=== PATIENT | female | born 1960 | race Caucasian/White ===

== ENCOUNTER 2017-08-29 07:22 | Emergency (ER) | payer BC, OTHER ==
--- NOTE | 2017-08-29 07:39 | ER ---
Nurse's Notes [facility] Name: Lalitha Callejas Age: 56 yrs Sex: Female : 1960 Arrival Date: 08/29/2017 Time: 07:26 Bed 6 Private MD: None, None Diagnosis: Suppurative otitis media, unspecified, left ear Presentation: 08/29 07:28 Presenting complaint: Patient states: was seen by PCP Wednesday and prescribed Prednisone sv and claritin for sinus congestion, doesn't feel any better. c/o head pressure, left ear drum ringing, runny nose. Denies fever. Transition of care: patient was not received from another setting of care. Onset of symptoms was August 27, 2017. Risk Assessment: Do you want to hurt yourself or someone else? Patient reports no desire to harm self or others. Initial Sepsis Screen: Does the patient meet any 2 criteria? No. Patient's initial sepsis screen is negative. Does the patient have a suspected source of infection? No. Patient's initial sepsis screen is negative. Care prior to arrival: None. 07:28 Method Of Arrival: Ambulatory sv 07:28 Acuity: MOUNA 5 sv Historical: - Allergies: 07:35 NKDA; sv - Home Meds: 07:35 Claritin Oral [Active]; sv - PMHx: 07:35 None; sv - PSHx: 07:35 None; sv - Immunization history:: Adult Immunizations up to date. - Social history:: Smoking status: Patient/guardian denies using tobacco, Patient/guardian denies using alcohol, the patient reports quitting approximately 7 years ago. - Ebola Screening: : No symptoms or risks identified at this time. Screenin:35 Abuse screen: Denies threats or abuse. Denies injuries from another. Nutritional hb screening: No deficits noted. Tuberculosis screening: No symptoms or risk factors identified. Fall Risk None identified. Assessment: 07:40 General: Appears in no apparent distress. Behavior is calm, cooperative. Pain: Pain hb currently is 6 out of 10 on a pain scale. Neuro: Level of Consciousness is awake, alert, obeys commands, Oriented to person, place, time, situation. Cardiovascular: Capillary refill < 3 seconds Patient's skin is warm and dry. Respiratory: Airway is patent Trachea midline Respiratory effort is even, unlabored, Respiratory pattern is regular, symmetrical, Breath sounds are clear bilaterally. GI: No signs and/or symptoms were reported involving the gastrointestinal system. : No signs and/or symptoms were reported regarding the genitourinary system. EENT: Reports nasal congestion pain since ears. Derm: No signs and/or symptoms reported regarding the dermatologic system. Skin is intact, is healthy with good turgor, Skin is pink, warm \T\ dry. Musculoskeletal: No signs and/or symptoms reported regarding the musculoskeletal system. Vital Signs: 07:36 BP 138 / 84; Pulse 89; Resp 18; Temp 97.8(TE); Pulse Ox 98% on R/A; Weight 58.06 kg; sv Height 5 ft. 10 in. (177.80 cm); Pain 6/10; 07:36 Body Mass Index 18.37 (58.06 kg, 177.80 cm) sv ED Course: 07:26 Patient arrived in ED. sb2 07:26 None, None is Private Physician. sb2 07:28 Jake Neely MD is Attending Physician. gs 07:35 Triage completed. sv 07:36 Arm band placed on right wrist. sv 07:40 Patient has correct armband on for positive identification. Bed in low position. Call light in reach. Side rails up X 1. Administered Medications: No medications were administered Outcome: 07:37 Discharge ordered by . 07:58 Discharged to home ambulatory. hb 07:58 Condition: stable 07:58 Discharge instructions given to patient, Instructed on discharge instructions, follow up and referral plans. medication usage, Demonstrated understanding of instructions, follow-up care, medications, Prescriptions given X 1. 07:58 Patient left the ED. hb Signatures: Kendra Elmore, RN RN Luz Eng, RN RN Jake Neely MD MD Yamilet Childress sb2
--- NOTE | 2017-08-29 07:58 | EDPHYS ---
Physician Documentation [facility] Name: Lalitha Callejas Age: 56 yrs Sex: Female : 1960 Arrival Date: 08/29/2017 Time: 07:26 Bed 6 Private MD: None, None ED Physician Jake Neely HPI: 08/29 07:38 This 56 yrs old Female presents to ER via Ambulatory with complaints of Sinus gs Pain. 07:38 The patient or guardian reports congestion, l ear pain. Onset: The symptoms/episode gs began/occurred 3 day(s) ago, and became persistent. Severity of symptoms: At their worst the symptoms were moderate, in the emergency department the symptoms are unchanged. Associated signs and symptoms: Pertinent positives: earache, Pertinent negatives: chest pain, fever. The patient has experienced similar episodes in the past, a few times. The patient has been recently seen by a physician: the patient's primary care provider. Historical: - Allergies: 07:35 NKDA; sv - Home Meds: 07:35 Claritin Oral [Active]; sv - PMHx: 07:35 None; sv - PSHx: 07:35 None; sv - Immunization history:: Adult Immunizations up to date. - Social history:: Smoking status: Patient/guardian denies using tobacco, Patient/guardian denies using alcohol, the patient reports quitting approximately 7 years ago. - Ebola Screening: : No symptoms or risks identified at this time. ROS: 07:38 All other systems are negative. gs Exam: 07:38 Head/Face: Normocephalic, atraumatic. Eyes: Pupils equal round and reactive to light, gs extra-ocular motions intact. Lids and lashes normal. Conjunctiva and sclera are non-icteric and not injected. Cornea within normal limits. Periorbital areas with no swelling, redness, or edema. Neck: Trachea midline, no thyromegaly or masses palpated, and no cervical lymphadenopathy. Supple, full range of motion without nuchal rigidity, or vertebral point tenderness. No Meningismus. Chest/axilla: Normal chest wall appearance and motion. Nontender with no deformity. No lesions are appreciated. Cardiovascular: Regular rate and rhythm with a normal S1 and S2. No gallops, murmurs, or rubs. Normal PMI, no JVD. No pulse deficits. Respiratory: Lungs have equal breath sounds bilaterally, clear to auscultation and percussion. No rales, rhonchi or wheezes noted. No increased work of breathing, no retractions or nasal flaring. Abdomen/GI: Soft, non-tender, with normal bowel sounds. No distension or tympany. No guarding or rebound. No evidence of tenderness throughout. Back: No spinal tenderness. No costovertebral tenderness. Full range of motion. Skin: Warm, dry with normal turgor. Normal color with no rashes, no lesions, and no evidence of cellulitis. MS/ Extremity: Pulses equal, no cyanosis. Neurovascular intact. Full, normal range of motion. Neuro: Awake and alert, GCS 15, oriented to person, place, time, and situation. Cranial nerves II-XII grossly intact. Motor strength 5/5 in all extremities. Sensory grossly intact. Cerebellar exam normal. Normal gait. 07:38 Constitutional: The patient appears alert, awake. 07:38 ENT: TM's: fluid levels, on the left, Examination of the other ear shows no obvious abnormality. Vital Signs: 07:36 BP 138 / 84; Pulse 89; Resp 18; Temp 97.8(TE); Pulse Ox 98% on R/A; Weight 58.06 kg; sv Height 5 ft. 10 in. (177.80 cm); Pain 6/10; 07:36 Body Mass Index 18.37 (58.06 kg, 177.80 cm) sv MDM: 07:37 Patient medically screened. 07:38 Differential Diagnosis: Upper Respiratory Infection Sinusitis Otitis Media. Data gs reviewed: vital signs, nurses notes. Counseling: I had a detailed discussion with the patient and/or guardian regarding: the presence of at least one elevated blood pressure reading (>120/80) during this emergency department visit. Special discussion: I have referred the patient to see his PCP for further evaluation of high blood pressure. Administered Medications: No medications were administered Disposition: 08/29/17 07:37 Discharged to Home. Impression: Suppurative otitis media, unspecified, left ear. - Condition is Stable. - Discharge Instructions: Otitis Media, Adult. - Prescriptions for Ceftin 500 mg Oral Tablet - take 1 tablet by ORAL route every 12 hours for 10 days; 20 tablet. - Medication Reconciliation Form, Thank You Letter, Antibiotic Education, Prescription Opioid Use form. - Follow up: Private Physician; When: 2 - 3 days; Reason: Re-evaluation by your physician. Signatures: Kendra Elmore RN RN Luz Eng RN RN Jake Prado MD MD gs Corrections: (The following items were deleted from the chart) 07:58 07:37 08/29/2017 07:37 Discharged to Home. Impression: Suppurative otitis media, hb unspecified, left ear. Condition is Stable. Forms are Medication Reconciliation Form, Thank You Letter, Antibiotic Education, Prescription Opioid Use. Follow up: Private Physician; When: 2 - 3 days; Reason: Re-evaluation by your physician. gs
== END 2017-08-29 07:58 | disposition home or self-care (01) ==
LOC: ER 07:22
DX: H66.42 Suppurative otitis media, unspecified, left ear (principal)
CPT/HCPCS: 99282

== ENCOUNTER 2018-04-02 12:42 | Emergency (ER) | payer BC, OTHER ==
--- NOTE | 2018-04-02 16:10 | ER ---
Nurse's Notes [facility] Name: Lalitha Callejas Age: 57 yrs Sex: Female : 1960 Arrival Date: 04/02/2018 Time: 12:46 Bed 9 Private MD: None, None Diagnosis: Cutaneous abscess of neck Presentation: 04/02 12:52 Presenting complaint: Patient states: Abscess to left neck for 3 days. Denies drainage aj or fever. Transition of care: patient was not received from another setting of care. Onset of symptoms was March 30, 2018. Risk Assessment: Do you want to hurt yourself or someone else? Patient reports no desire to harm self or others. Initial Sepsis Screen: Does the patient meet any 2 criteria? No. Patient's initial sepsis screen is negative. Does the patient have a suspected source of infection? No. Patient's initial sepsis screen is negative. Care prior to arrival: None. 12:52 Method Of Arrival: Ambulatory aj 12:52 Acuity: MOUNA 4 aj Triage Assessment: 12:53 General: Appears in no apparent distress. comfortable, Behavior is calm, cooperative, aj appropriate for age. Pain: Denies pain. Neuro: Level of Consciousness is awake, alert, obeys commands, Oriented to person, place, time, situation, Appropriate for age. Respiratory: Airway is patent Respiratory effort is even, unlabored, Respiratory pattern is regular, symmetrical. Derm: Abscess located on left posterior aspect of neck. Historical: - Allergies: 12:53 NKDA; aj - Home Meds: 12:53 None [Active]; aj - PMHx: 12:53 None; aj - PSHx: 12:53 None; aj - Immunization history:: Adult Immunizations unknown. - Social history:: Smoking status: Patient/guardian denies using tobacco. - Ebola Screening: : Patient negative for fever greater than or equal to 101.5 degrees Fahrenheit, and additional compatible Ebola Virus Disease symptoms Patient denies exposure to infectious person Patient denies travel to an Ebola-affected area in the 21 days before illness onset No symptoms or risks identified at this time. Screenin:20 Abuse screen: Denies threats or abuse. Denies injuries from another. Nutritional iw screening: No deficits noted. Tuberculosis screening: No symptoms or risk factors identified. Fall Risk None identified. Assessment: 15:20 General: Appears in no apparent distress. Behavior is calm, cooperative. Pain: iw Complains of pain in left posterior aspect of neck. Neuro: Level of Consciousness is awake, alert, obeys commands, Oriented to person, place, time. Cardiovascular: Patient's skin is warm and dry. Respiratory: Respiratory effort is even, unlabored. Derm: Abscess located on left posterior aspect of neck is quarter sized. Musculoskeletal: Range of motion: intact in all extremities. Vital Signs: 12:53 BP 144 / 82; Pulse 96; Resp 16; Temp 98.3; Pulse Ox 98% on R/A; Weight 58.97 kg; Height aj 5 ft. 10 in. (177.80 cm); 12:53 Body Mass Index 18.65 (58.97 kg, 177.80 cm) aj ED Course: 12:46 Patient arrived in ED. mr 12:46 None, None is Private Physician. mr 12:53 Triage completed. aj 12:53 Arm band placed on left wrist. Patient placed in waiting room, Patient notified of wait aj time. 14:07 Adelia Pierre, KIARA is Primary Nurse. iw 14:24 Tay Ibrahim NP is PHCP. pm1 14:24 Koko Hameed MD is Attending Physician. pm1 15:20 Patient has correct armband on for positive identification. iw 16:34 No provider procedures requiring assistance completed. Patient did not have IV access iw during this emergency room visit. Administered Medications: 16:10 Drug: Tetanus-Diphtheria Toxoid Adult 0.5 ml {Director Chemistry: [employer]. Exp: iw 08/06/2019. Lot #: [id number]. } Route: IM; Site: left gluteus; Outcome: 16:10 Discharge ordered by . pm1 16:34 Discharged to home ambulatory. iw 16:34 Condition: good 16:34 Discharge instructions given to patient, Instructed on discharge instructions, follow up and referral plans. medication usage, Demonstrated understanding of instructions, follow-up care, medications, Prescriptions given X 2. 16:35 Patient left the ED. iw Signatures: Shanda Shin RN hSelbie Thompson mr Adelia Pierre RN RN iw Marinas, Patrick, NP [employer] ORGANIZER pm1
--- NOTE | 2018-04-02 16:11 | EDPHYS ---
Physician Documentation [facility] Name: Lalitha Callejas Age: 57 yrs Sex: Female : 1960 Arrival Date: 04/02/2018 Time: 12:46 Bed 9 Private MD: None, None ED Physician Koko Hameed HPI: 04/02 16:00 This 57 yrs old Female presents to ER via Ambulatory with complaints of pm1 Abscess. 16:00 The patient presents with an abscess of the left posterior aspect of neck. Description: pm1 raised. Onset: The symptoms/episode began/occurred 3 day(s) ago. Possible cause(s): unknown. Associated signs and symptoms: Pertinent negatives: drainage, fever. Modifying factors: the symptoms are alleviated by nothing, the symptoms are aggravated by squeezing the lesion and expressing the contents, touching. Severity of symptoms: in the emergency department the symptoms are actually worse. The patient has not experienced similar symptoms in the past. The patient has not recently seen a physician. Patient's family has been trying to squeeze and express it without any drainage coming out. Historical: - Allergies: 12:53 NKDA; aj - Home Meds: 12:53 None [Active]; aj - PMHx: 12:53 None; aj - PSHx: 12:53 None; aj - Immunization history:: Adult Immunizations unknown. - Social history:: Smoking status: Patient/guardian denies using tobacco. - Ebola Screening: : Patient negative for fever greater than or equal to 101.5 degrees Fahrenheit, and additional compatible Ebola Virus Disease symptoms Patient denies exposure to infectious person Patient denies travel to an Ebola-affected area in the 21 days before illness onset No symptoms or risks identified at this time. ROS: 16:00 Constitutional: Negative for fever, chills, and weight loss, Eyes: Negative for injury, pm1 pain, redness, and discharge, ENT: Negative for injury, pain, and discharge, Neck: Negative for injury, pain, and swelling, Cardiovascular: Negative for chest pain, palpitations, and edema, Respiratory: Negative for shortness of breath, cough, wheezing, and pleuritic chest pain, Abdomen/GI: Negative for abdominal pain, nausea, vomiting, diarrhea, and constipation, Back: Negative for injury and pain, : Negative for injury, bleeding, discharge, and swelling, MS/Extremity: Negative for injury and deformity. 16:00 Neuro: Negative for headache, weakness, numbness, tingling, and seizure. 16:00 Skin: Positive for abscess, of the left posterior aspect of neck, Negative for cellulitis. Exam: 16:00 Constitutional: This is a well developed, well nourished patient who is awake, alert, pm1 and in no acute distress. Head/Face: Normocephalic, atraumatic. Eyes: Pupils equal round and reactive to light, extra-ocular motions intact. Lids and lashes normal. Conjunctiva and sclera are non-icteric and not injected. Cornea within normal limits. Periorbital areas with no swelling, redness, or edema. ENT: Nares patent. No nasal discharge, no septal abnormalities noted. Tympanic membranes are normal and external auditory canals are clear. Oropharynx with no redness, swelling, or masses, exudates, or evidence of obstruction, uvula midline. Mucous membranes moist. Neck: Trachea midline, no thyromegaly or masses palpated, and no cervical lymphadenopathy. Supple, full range of motion without nuchal rigidity, or vertebral point tenderness. No Meningismus. Chest/axilla: Normal chest wall appearance and motion. Nontender with no deformity. No lesions are appreciated. Cardiovascular: Regular rate and rhythm with a normal S1 and S2. No gallops, murmurs, or rubs. No pulse deficits. Respiratory: Lungs have equal breath sounds bilaterally, clear to auscultation and percussion. No rales, rhonchi or wheezes noted. No increased work of breathing, no retractions or nasal flaring. Abdomen/GI: Soft, non-tender, with normal bowel sounds. No distension or tympany. No guarding or rebound. No evidence of tenderness throughout. Back: No spinal tenderness. No costovertebral tenderness. Full range of motion. 16:00 MS/ Extremity: Pulses equal, no cyanosis. Neurovascular intact. Full, normal range of motion. 16:00 Skin: Appearance: normal except for affected area, abscess, that is small, approximately 1 cm(s), of the left posterior aspect of neck, with central scab. Central scab de-roofed and needle aspirated. No fluctuance, drainage or purulence present. No surrounding cellulitis, cellulitis, is not appreciated. 16:00 Neuro: Orientation: is normal, Motor: is normal, moves all fours, Gait: is steady, at a normal pace, without difficulty. Vital Signs: 12:53 BP 144 / 82; Pulse 96; Resp 16; Temp 98.3; Pulse Ox 98% on R/A; Weight 58.97 kg; Height aj 5 ft. 10 in. (177.80 cm); 12:53 Body Mass Index 18.65 (58.97 kg, 177.80 cm) MDM: 14:27 Patient medically screened. [facility] 16:09 Data reviewed: vital signs. Data interpreted: Pulse oximetry: on room air is 98 %. pm1 Interpretation: normal. Counseling: I had a detailed discussion with the patient and/or guardian regarding: the historical points, exam findings, and any diagnostic results supporting the discharge/admit diagnosis, the need for outpatient follow up, for definitive care, a general surgeon, to return to the emergency department if symptoms worsen or persist or if there are any questions or concerns that arise at home. Administered Medications: 16:10 Drug: Tetanus-Diphtheria Toxoid Adult 0.5 ml {Principal Software Engineer: [employer]. Exp: iw 08/06/2019. Lot #: [id number]. } Route: IM; Site: left gluteus; Disposition: 04/02/18 16:10 Discharged to Home. Impression: Cutaneous abscess of neck. - Condition is Stable. - Discharge Instructions: Skin Abscess. - Prescriptions for Bactrim DS 800- 160 mg Oral Tablet - take 1 tablet by ORAL route every 12 hours for 10 days; 20 tablet. Tramadol 50 mg Oral Tablet - take 1 tablet by ORAL route every 8 hours as needed; 12 tablet. - Medication Reconciliation Form, Thank You Letter, Antibiotic Education form. - Follow up: Emergency Department; When: As needed; Reason: Worsening of condition. Follow up: Private Physician; When: 2 - 3 days; Reason: Recheck today's complaints, Continuance of care, Re-evaluation by your physician. - Problem is new. - Symptoms have improved. Addendum: 04/06/2018 07:55 Co-signature as Attending Physician, Koko Hameed MD I agree with the assessment and c ascencio plan of care. Signatures: Shanda Shin RN RN aj Anderson, Corey, MD MD cha Williams, Irene, RN RN iw Marinas, Patrick, NP [employer]LTICE MACHINE OPERATOR pm1 Corrections: (The following items were deleted from the chart) 04/02 16:35 16:10 04/02/2018 16:10 Discharged to Home. Impression: Cutaneous abscess of neck. iw Condition is Stable. Forms are Medication Reconciliation Form, Thank You Letter, Antibiotic Education, Prescription Opioid Use. Follow up: Emergency Department; When: As needed; Reason: Worsening of condition. Follow up: Private Physician; When: 2 - 3 days; Reason: Recheck today's complaints, Continuance of care, Re-evaluation by your physician. Problem is new. Symptoms have improved. pm1
[2018-04-02] MEDS ORDERED: TETANUS & DIPHTHERIA TOX,ADULT 0.5 ML VIAL ONE (16:22)
== END 2018-04-02 16:35 | disposition home or self-care (01) ==
LOC: ER 12:42
DX: L02.11 Cutaneous abscess of neck (principal); Z23 Encounter for immunization
CPT/HCPCS: 90714; 99283

== ENCOUNTER → 2023-03-21 | Emergency (ER) | payer BC, OTHER ==
[~2023-03-21] MED LIST: FAMOTIDINE 20 MG TAB ONE; HYDROCODONE/APAP 5/325 MG TAB ONE; KETOROLAC 30 MG/ML INJ ONE
--- OUTSIDE RECORDS SUMMARY | 2023-03-21 04:44 | XMS REPORT | Continuity of Care Document ---
Author Name Unknown Address [address] [facility]. [address] [place] [address] [facility] Address [address] [facility] [address] [place] [address] Care Team Providers Care Supervisor [employer] Name Role Phone Kendra Pena Primary Care Physician [phone] Torrie Loco Attending Clinician Unavailable [email or web address]_S Attending Clinician UnavailBENJAMÍN Good Attending Clinician Unavailable Benjamín Parr MD Attending Clinician [phone] Bekah Myles Attending Clinician [phone] EMMA FRANCIS Attending Clinician UnavailRACHEL Perez Attending Clinician Unavailable [email or web address]_Kadikelleya_S Admitting Clinician Unavailamrita chamorro Payers Payer Name Policy Type Policy Number Effective Date Expirati on Date Source [facility] 6 [id number] 1998 00:00:00 [facility] FED SELECT [id number] 1998 00:00:00 Problems Condition Name Condition Details Condition Category Status Onset Date Resolution Date Last Treatment Date Treating Clinician Comments Source Right shoulder pain Right shoulder pain Disease Active 11-12 00:00: 00 General acute hospital [id number] Anxiety Problem Active [facility] [id number] Pain, joint, knee, right Problem [facility] Allergies, Adverse Reactions, Alerts Allergy Name Allergy Type Status Severity Reaction(s) Onset Date Inactive Date Treating Clinician Comments Source NO KNOWN ALLERGIE S Drug Class Active General acute hospital Social History Social Habit Start Date Stop Date Quantity Comments Source History of Tobacco Use [facility] Sex Assigned At [facility] Exposure to SARS-CoV-2 (event) 2021-08-31 00:00:00 2021-09-10 09:03:00 Not sure [facility] Alcohol intake 2021-09-10 00:00:00 2021-09-10 00:00:00 0 /d [facility] Smoking Status Start Date Stop Date Source Never smoker [facility] Former Smoker 2022-06-08 00:00:00 2022-06-08 00:00:00 [facility] Medications Ordered Medication Name Filled Medication Name Start Date Stop Date Current Medication? Ordering Clinician Indication Dosage Frequency Signature (SIG) Comments Components Source ondansetron (ZOFRAN-ODT ) disintegrat ing tablet 8 mg 09-10 15:30: 00 09-10 14:28 :00 No [id number] 8mg General acute hospital ondansetron (ZOFRAN-ODT ) disintegrat ing tablet 8 mg 09-10 15:30: 00 09-10 14:28 :00 No [id number] 8mg 8 mg, Oral, ONCE, 1 dose, On Wed09/10/21 at 1030, Routine General acute hospital ondansetron 4 mg disintegrat ing tablet 09-10 00:00: 00 Yes [id number] 4mg Take 1 tablet by mouth every 8 (eight) hours as needed for Nausea and Vomiting (N/V). General acute hospital methylPREDN ISolone (MEDROL, LORRIE,) 4 mg tablets 817 00:00: 00 09-10 00:00 :00 No 84mg Take 21 tablets by mouth SEE-INSTRU CTIONS. follow package directions [facility] acute hospital diclofenac (VOLTAREN) 75 mg EC tablet 11-05 00:00: 00 Yes 75mg Take 75 mg by mouth 2 (two) times daily. General acute hospital paroxetine (PAXIL) 10 mg tablet 6 00:00: 00 Yes 10mg Take 10 mg by mouth daily. General acute hospital Paroxetine HCl 10 MG Paroxetine HCl 10 MG No QD Paroxetine HCl 10 MG PARoxetine HCl 10 MG PARoxetine HCl 10 MG No QD PARoxetine HCl 10 MG PARoxetine HCl 10 MG PARoxetine HCl 10 MG No QD PARoxetine HCl 10 MG Voltaren 1 % Voltaren 1 % No Voltaren 1 % PARoxetine HCl 10 MG PARoxetine HCl 10 MG No QD PARoxetine HCl 10 MG Mobic Mobic No Mobic Meloxicam 7.5 MG Meloxicam 7.5 MG No 1{table t} QD Meloxicam 7.5 MG Voltaren 1 % Voltaren 1 % No Voltaren 1 % PARoxetine HCl 10 MG PARoxetine HCl 10 MG No QD PARoxetine HCl 10 MG Mobic Mobic No Mobic Meloxicam 7.5 MG Meloxicam 7.5 MG No 1{table t} QD Meloxicam 7.5 MG Voltaren 1 % Voltaren 1 % No Voltaren 1 % PARoxetine HCl 10 MG PARoxetine HCl 10 MG No QD PARoxetine HCl 10 MG Mobic Mobic No Mobic Meloxicam 7.5 MG Meloxicam 7.5 MG No 1{table t} QD Meloxicam 7.5 MG Voltaren 1 % Voltaren 1 % No Voltaren 1 % PARoxetine HCl 10 MG PARoxetine HCl 10 MG No QD PARoxetine HCl 10 MG Mobic Mobic No Mobic Meloxicam 7.5 MG Meloxicam 7.5 MG No 1{table t} QD Meloxicam 7.5 MG Vital Signs Vital Name Observation Time Observation Value Comments S ource height 2022-06-08 09:15:00 70 [in_i] Commo n [facility] weight 2022-06-08 09:15:00 142 [lb_av] Comm on [facility] temperature 2022-06-08 09:15:00 97.4 [degF] Com mon [facility] bmi 2022-06-08 09:15:00 20.37 kg/m2 Comm on [facility] blood pressure systolic 2022-06-08 09:15:00 122 mm[Hg] [facility] blood pressure diastolic 2022-06-08 09:15:00 68 mm[Hg] [facility] height 2022-05-21 08:15:00 70 [in_i] Commo n [facility] weight 2022-05-21 08:15:00 142 [lb_av] Comm on [facility] temperature 2022-05-21 08:15:00 97.8 [degF] Com [facility] bmi 2022-05-21 08:15:00 20.37 kg/m2 Comm on [facility] blood pressure systolic 2022-05-21 08:15:00 128 mm[Hg] [facility] blood pressure diastolic 2022-05-21 08:15:00 70 mm[Hg] [facility] height 2022-05-13 08:30:00 70 [in_i] Commo n [facility] weight 2022-05-13 08:30:00 142.8 [lb_av] Co mmon [facility] temperature 2022-05-13 08:30:00 97.8 [degF] Com [facility] bmi 2022-05-13 08:30:00 20.49 kg/m2 Comm on [facility] blood pressure systolic 2022-05-13 08:30:00 126 mm[Hg] [facility] blood pressure diastolic 2022-05-13 08:30:00 68 mm[Hg] Common [facility] Systolic blood pressure 2021-09-10 14:17:00 137 mm[Hg] [facility] Diastolic blood pressure 2021-09-10 14:17:00 95 mm[Hg] [facility] Heart rate 2021-09-10 14:12:00 83 [facility] 2021-09-10 14:12:00 36.72 Kelly [facility] Respiratory rate 2021-09-10 14:12:00 22 /min [facility] Body height 2021-09-10 14:12:00 177.8 cm [facility] weight 2021-09-10 14:12:00 63.413 kg [facility] BMI 2021-09-10 14:12:00 20.06 kg/m2 [facility] Oxygen saturation in Arterial blood by Pulse oximetry 2021-09-10 14:12:00 98 /min [facility] height 2020-11-28 10:20:00 70 [in_i] Commo n [facility] weight 2020-11-28 10:20:00 141 [lb_av] Comm on [facility] temperature 2020-11-28 10:20:00 96.8 [degF] Com mon [facility] bmi 2020-11-28 10:20:00 20.23 kg/m2 Comm on [facility] oximetry 2020-11-28 10:20:00 98 % Commo n [facility] respiratory rate 2020-11-28 10:20:00 16 /min Common [facility] blood pressure systolic 2020-11-28 10:20:00 128 mm[Hg] Common [facility] blood pressure diastolic 2020-11-28 10:20:00 62 mm[Hg] Common [facility] height 2020-05-28 13:20:00 70 [in_i] Commo n [facility] weight 2020-05-28 13:20:00 143.2 [lb_av] Co mmon [facility] bmi 2020-05-28 13:20:00 20.54 kg/m2 Comm on [facility] oximetry 2020-05-28 13:20:00 98 % Commo n [facility] blood pressure systolic 2020-05-28 13:20:00 124 mm[Hg] Common [facility] blood pressure diastolic 2020-05-28 13:20:00 78 mm[Hg] [facility] Encounters Start Date/Time End Date/Time Encounter Type Admission Type Attending [facility] Care Department Encounter ID Source 2022-05-13 08:36:01 Outpatient Torrie Loco STLMLC STLMLC [id number] [facility] 2022-05-04 08:50:00 Outpatient Torrie Loco STLMLC STLMLC [id number] [facility] 2021-10-23 12:36:00 Outpatient Torrie Loco STLMLC STLMLC [id number] [facility] 2021-04-23 12:35:18 Outpatient Torrie Loco STLMLC STLMLC [id number] [facility] 2023-01-26 00:00:00 2023-01-26 00:00:00 Outpatient GC_GCBZW_Ka diyala_S PRIV PRIV [id number] [facility] 2023-01-25 00:00:00 2023-01-25 00:00:00 Outpatient GC_GCBZW_Ka diyala_S PRIV PRIV [id number] [facility] 2023-01-06 08:08:11 2023-01-06 08:08:11 Outpatient SFA SFA [id number] Juan Jose F Himanshu 2022-12-01 07:46:31 2022-12-01 07:46:31 Outpatient SFA SFA [id number] Juan Jose Giuliano Himanshu 2022-06-09 00:00:00 2022-06-09 00:00:00 (TEL) STLMLC STLMLC [id number] [facility] 2022-06-08 00:00:00 2022-06-08 00:00:00 OFFICE VISIT ESTAB PT LEVEL 3 STLMLC STLC [id number] [facility] 2022-05-21 00:00:00 2022-05-21 00:00:00 OFFICE VISIT ESTAB PT LEVEL 3 STLMLC STLMLC [id number] [facility] 2022-05-13 00:00:00 2022-05-13 00:00:00 OFFICE VISIT NEW PT LEVEL 3 STLMLC STLMLC [id number] [facility] 2021-09-10 09:20:00 2021-09-10 09:29:26 Outpatient R BENJAMÍN PARR [facility] [id number] General acute hospital 2021-09-10 09:20:00 2021-09-10 09:29:26 [facility] [id number] General acute hospital 2020-12-16 13:45:00 2020-12-16 13:45:00 Outpatient R EMMA FRANCIS [facility] [id number] General acute hospital 2020-11-28 00:00:00 2020-11-28 00:00:00 OFFICE VISIT EST PT LEVEL 3 STLMLC STLMLC [id number] [facility] 2020-11-21 00:00:00 2020-11-21 00:00:00 (TEL) STLMLC STLMLC [id number] [facility] 2020-05-28 00:00:00 2020-05-28 00:00:00 OFFICE VISIT NEW PT LEVEL 3 STLMLC STLMLC [id number] [facility] 2020-01-21 09:00:00 2020-01-21 09:00:00 Outpatient RACHEL SUAREZ [facility] [id number] General acute hospital Results Test Description Test Time Test Comments Results Result Co mments Source MRI Knee Right Wo Cont MRI Knee Right Wo Cont
--- NOTE | 2023-03-21 05:54 | EDPHYS ---
Physician Documentation [facility] Name: Lalitha Callejas Age: 62 yrs Sex: Female : 1960 Arrival Date: 03/21/2023 Time: 04:41 Bed 8 Private MD: ED Physician Cam Diana HPI: 03/21 05:40 This 62 yrs old Female presents to ER via Ambulatory with complaints of Shoulder Pain, ci Feet Swelling, Hand Swelling. 05:40 Patient is a 62F with PMH psoriatic arthritis who presents with flare up of her ci arthritis. Patient reports during the winter her arthritis flares up badly and she has joint pain, knuckle pain and swelling. She is supposed to be on Otezla but reports this makes her deathly ill with nausea and fatigue and she stopped taking this. Patient took a left over 5 mg prednisone and ibuprofen at 2000 last night which seemed to help her symptoms. She denies trauma/fall, fever. Historical: - Allergies: 05:05 NKDA; jb4 - Home Meds: 05:05 None [Active]; jb4 - PMHx: 05:07 Psoriatic Arthritis; jb4 - PSHx: 05:05 None; jb4 - Immunization history:: Adult Immunizations up to date. - Social history:: Smoking status: Patient denies any tobacco usage or history of. ROS: 05:40 Constitutional: Positive for body aches, ci 05:40 MS/extremity: Positive for swelling, tenderness, Exam: 05:40 Constitutional: This is a well developed, well nourished patient who is awake, alert, ci and in no acute distress. Head/Face: Normocephalic, atraumatic. Eyes: Pupils equal round and reactive to light, extra-ocular motions intact. Lids and lashes normal. Conjunctiva and sclera are non-icteric and not injected. Cornea within normal limits. Periorbital areas with no swelling, redness, or edema. ENT: Nares patent. No nasal discharge, no septal abnormalities noted. Tympanic membranes are normal and external auditory canals are clear. Oropharynx with no redness, swelling, or masses, exudates, or evidence of obstruction, uvula midline. Mucous membranes moist. Neck: Trachea midline, no thyromegaly or masses palpated, and no cervical lymphadenopathy. Supple, full range of motion without nuchal rigidity, or vertebral point tenderness. No Meningismus. Chest/axilla: Normal chest wall appearance and motion. Nontender with no deformity. No lesions are appreciated. Cardiovascular: Regular rate and rhythm with a normal S1 and S2. No gallops, murmurs, or rubs. Normal PMI, no JVD. No pulse deficits. Respiratory: Lungs have equal breath sounds bilaterally, clear to auscultation and percussion. No rales, rhonchi or wheezes noted. No increased work of breathing, no retractions or nasal flaring. Abdomen/GI: Soft, non-tender, with normal bowel sounds. No distension or tympany. No guarding or rebound. No evidence of tenderness throughout. Back: No spinal tenderness. No costovertebral tenderness. Full range of motion. Skin: Warm, dry with normal turgor. Normal color with plaque rash to B/L elbow, no evidence of cellulitis. MS/ Extremity: Pulses equal, no cyanosis. Neurovascular intact. Full, normal range of motion. B/L fingers slightly swollen around DIP/PIP. R shoulder atraumatic, ambulates with a steady gait Neuro: Awake and alert, GCS 15, oriented to person, place, time, and situation. Cranial nerves II-XII grossly intact. Motor strength 5/5 in all extremities. Sensory grossly intact. Cerebellar exam normal. Normal gait. Psych: Awake, alert, with orientation to person, place and time. Behavior, mood, and affect are within normal limits. Vital Signs: 04:57 BP 146 / 91; Pulse 93; Resp 18; Temp 98.1; Pulse Ox 99% on R/A; oe 04:59 Weight 63.05 kg; Height 5 ft. 10 in. ; jb4 04:59 Body Mass Index 19.94 (63.05 kg, 177.8 cm) jb4 MDM: 04:53 Patient medically screened. ci 05:40 Differential diagnosis: DJD, tendonitis, RA, OA, lupus. Data reviewed: vital signs, ci nurses notes. Test considered but Not performed: X-ray: Shoulder XR considered but patient declined. Historians other than the Patient: Spouse/Significant Other: . Refusal of service: The patient/guardian displays adequate decision making capability and despite a detailed discussion of alternatives, benefits, risks, and consequences refuses: all X-rays. ED course: Patient presents with generalized body TTP. Reports pain worse in R shoulder but feels similar to previous arthritis flare up, declined XR. No reproducible TTP, ambulates with a steady gait. Denies fever, no pain with passive ROM. Given pain meds with some improvement. Stable for discharge with PCP and rheumatology follow up. Administered Medications: 05:29 Drug: Ketorolac IM 15 mg IM once Route: IM; Site: right deltoid; shasha 05:29 Drug: HYDROcodone-acetaminophen PO 5 mg-325 mg 1 tabs PO once Route: PO; jb4 05:29 Drug: Famotidine PO 20 mg PO once Route: PO; jb4 Disposition Summary: 03/21/23 05:53 Discharge Ordered Notes: Location: Home ci Condition: Stable ci Diagnosis - Polyarthritis, unspecified ci Followup: ci - With: Private Physician - When: 2 - 3 days - Reason: Recheck today's complaints, Re-evaluation by your physician Discharge Instructions: - Discharge Summary Sheet ci - Shoulder Range of Motion Exercises ci - Arthritis, [id number] ci Forms: - Medication Reconciliation Form ci - Thank You Letter ci - Antibiotic Education ci - Prescription Opioid Use ci - Patient Portal Instructions ci - Leadership Thank You Letter ci Prescriptions: - Medrol ([place]) 4 mg Oral Tablets, Dose Pack - take 1 tablet ORAL route as directed - follow package instructions; 1 packet; ci Refills: 0, Product Selection Permitted Signatures: Mckinley Tamayo, RN RN jb4 Cam Diana ci Corrections: (The following items were deleted from the chart) 05:08 05:05 PMHx: None; shasha pulliam
--- NOTE | 2023-03-21 05:54 | ER ---
Nurse's Notes [facility] Name: Lalitha Callejas Age: 62 yrs Sex: Female : 1960 Arrival Date: 03/21/2023 Time: 04:41 Bed 8 Private MD: Diagnosis: Polyarthritis, unspecified Presentation: 03/21 04:59 Chief complaint: Patient states: I was diagnosed in the past with Psoriatic Arthritis. jb4 I was put on some meds for it but quit taking them because they made me sick. I was fine through out the summer. Tonight I was having swelling in my hands and feet and having pain in all my joints. I took some prednisone and Motrin around 1999 last night and that helped me sleep. My right shoulder is causing most of my pain. Coronavirus screen: At this time, the client does not indicate any symptoms associated with coronavirus-19. Ebola Screen: No symptoms or risks identified at this time. Initial Sepsis Screen: Does the patient meet any 2 criteria? No. Patient's initial sepsis screen is negative. Does the patient have a suspected source of infection? No. Patient's initial sepsis screen is negative. Risk Assessment: Do you want to hurt yourself or someone else? Patient reports no desire to harm self or others. Onset of symptoms was March 21, 2023. Transition of care: patient was not received from another setting of care. 04:59 Method Of Arrival: Ambulatory jb4 04:59 Acuity: MOUNA 4 jb4 Historical: - Allergies: 05:05 NKDA; jb4 - Home Meds: 05:05 None [Active]; jb4 - PMHx: 05:07 Psoriatic Arthritis; jb4 - PSHx: 05:05 None; jb4 - Immunization history:: Adult Immunizations up to date. - Social history:: Smoking status: Patient denies any tobacco usage or history of. Screenin:07 [facility] ED Fall Risk Assessment (Adult) History of falling in the last 3 months, jb4 including since admission No falls in past 3 months (0 pts) Confusion or Disorientation No (0 pts). Abuse screen: Denies threats or abuse. Nutritional screening: No deficits noted. Tuberculosis screening: No symptoms or risk factors identified. Assessment: 05:09 General: Appears in no apparent distress. uncomfortable, Behavior is calm, cooperative, jb4 appropriate for age. Pain: Complains of pain in generalized body pains Pain currently is 8 out of 10 on a pain scale. Neuro: Level of Consciousness is awake, alert, obeys commands, Oriented to person, place, time, situation. Cardiovascular: Patient's skin is warm and dry. Respiratory: Airway is patent Respiratory effort is even, unlabored, Respiratory pattern is regular, symmetrical. GI: No signs and/or symptoms were reported involving the gastrointestinal system. : No signs and/or symptoms were reported regarding the genitourinary system. EENT: No signs and/or symptoms were reported regarding the EENT system. Derm: Skin is intact, Skin is pink, warm \T\ dry. Musculoskeletal: Circulation, motion, and sensation intact. Range of motion: intact in all extremities, Swelling Pt reports swelling to joints, and fingers. 06:07 Reassessment: Patient appears in no apparent distress at this time. Patient and/or jb4 family updated on plan of care and expected duration. Pain level reassessed. Patient is alert, oriented x 3, equal unlabored respirations, skin warm/dry/pink. Vital Signs: 04:57 BP 146 / 91; Pulse 93; Resp 18; Temp 98.1; Pulse Ox 99% on R/A; oe 04:59 Weight 63.05 kg; Height 5 ft. 10 in. ; jb4 04:59 Body Mass Index 19.94 (63.05 kg, 177.8 cm) jb4 ED Course: 04:45 Patient arrived in ED. gm2 04:53 Cam Diana is Attending Physician. ci 04:59 Mckinley Tamayo, RN is Primary Nurse. jb4 05:02 Triage completed. jb4 05:07 Arm band placed on right wrist. jb4 06:07 Patient has correct armband on for positive identification. Bed in low position. Call jb4 light in reach. Side rails up X 1. Client placed on continuous cardiac and pulse oximetry monitoring. NIBP monitoring applied. 06:07 No provider procedures requiring assistance completed. IV discontinued, intact, jb4 bleeding controlled, No redness/swelling at site. Pressure dressing applied. Administered Medications: 05:29 Drug: Ketorolac IM 15 mg IM once Route: IM; Site: right deltoid; jb4 05:29 Drug: HYDROcodone-acetaminophen PO 5 mg-325 mg 1 tabs PO once Route: PO; jb4 05:29 Drug: Famotidine PO 20 mg PO once Route: PO; jb4 Outcome: 05:53 Discharge ordered by . reagan 06:07 Discharged to home ambulatory, shasha 06:07 Condition: stable 06:07 Discharge instructions given to patient, Instructed on discharge instructions, follow up and referral plans. medication usage, Demonstrated understanding of instructions, follow-up care, medications, Prescriptions given X 1, 06:08 Patient left the ED. shasha Signatures: Mckinley Tamayo, RN RN jb4 Jim Wall Chizite ci Mitchell, Ginger 2 Corrections: (The following items were deleted from the chart) 05:08 05:05 PMHx: None; shasha pulliam
[2023-03-21 06:13] VITALS: BP 146/91; TEMP 98.1; O2SAT 99
== END ==
LOC: ER 04:41
DX: M13.0 Polyarthritis, unspecified (principal); L40.50 Arthropathic psoriasis, unspecified
CPT/HCPCS: 96372; 99284